=== PATIENT | female | born 1945 | race Caucasian/White ===

== ENCOUNTER 2018-01-18 11:18 | Inpatient (IN) | payer MEDICARE ==
[2018-01-15 09:25] LABS: BASOPHILS % (AUTO) 0.6 % (0-1); EOSINOPHILS # (AUTO) 0.3 X10'3 (0-0.9); EOSINOPHILS % (AUTO) 4.9 % (0-6); HEMATOCRIT 41.2 % (35.0-45.0); HEMOGLOBIN 13.5 g/dl (12.0-16.0); LYMPHOCYTES # (AUTO) 0.9 X10'3 (1.1-4.8); LYMPHOCYTES % (AUTO) 15.1 % (21-51); MEAN CORPUSCULAR HEMOGLOBIN 32.5 PG (27.0-31.0); MEAN CORPUSCULAR HGB CONC 32.9 % (33.0-36.5); MEAN CORPUSCULAR VOLUME 98.8 FL (78-98); MEAN PLATELET VOLUME 8.2 FL (7.4-10.4); MONOCYTES # (AUTO) 0.5 X10'3 (0-0.9); MONOCYTES % (AUTO) 8.8 % (2-12); NEUTROPHILS # (AUTO) 4.4 X10'3 (1.8-7.7); NEUTROPHILS % (AUTO) 70.6 % (42-75); PLATELET COUNT 211 X10'3 (140-440); RED BLOOD COUNT 4.17 X10'6 (4.20-5.60); RED CELL DISTRIBUTION WIDTH 15.8 % (11.5-14.5); WHITE BLOOD COUNT 6.3 X10'3 (4.5-11.0)
[2018-01-15 09:35] LABS: ALANINE AMINOTRANSFERASE 24 U/L (12-78); ALBUMIN 3.4 G/DL (3.4-5.0); ALBUMIN/GLOBULIN RATIO 0.9 (1.1-1.5); ALKALINE PHOSPHATASE 76 IU/L (46-116); ANION GAP 8 (8-16); ASPARTATE AMINO TRANSFERASE 24 U/L (10-37); BILIRUBIN,TOTAL 0.5 MG/DL (0.1-1.0); BLOOD UREA NITROGEN 14 MG/DL (7-18); BUN/CREATININE RATIO 15.7 (6.6-38.0); CHLORIDE 103 MMOL/L (99-107); CREATININE 0.89 MG/DL (0.40-0.90); GLUCOSE 112 MG/DL (70-104); POTASSIUM 4.3 MMOL/L (3.5-5.1); SODIUM 140 MMOL/L (135-145); TOTAL CARBON DIOXIDE 28.8 MMOL/L (24-32); TOTAL PROTEIN 7.1 G/DL (6.4-8.2); eGFR 62 ML/MIN
[2018-01-15 09:41] LABS: PARTIAL THROMBOPLASTIN TIME 26 SECONDS (22-32)
[~2018-01-18] VITALS: Ht 154.9 cm; Wt 82.5 kg
[2018-01-18] VITALS (23 sets, daily range): BP systolic 52–129; BP diastolic 36–88
[~2018-01-18 11:18] MED LIST: ASPI-1265 PO; BENA20TA82 PO; CARV3.122 PO; FURO-150 PO; NITR0.4T48 TD; OMEP40CA37 PO; POTA10TA19 PO; SIMV40TA4 PO; SPIR25TA5 PO
[2018-01-18] MEDS ORDERED: normal saline 1000ml 1,000 ML IV SCH ×2 (11:55→16:56)
[2018-01-18] MEDS ORDERED: LORazepam 0.5 MG tablet PO PRN (11:55)
[2018-01-18] MEDS ORDERED: diphenhydrAMINE 25mg capsule PO PRN (11:55)
[2018-01-18] MEDS ORDERED: nitroGLYCERIN 0.4mg SUBLingual tab SL PRN (11:55)
[2018-01-18] MEDS ORDERED: MELA3TAB PO (12:15)
[2018-01-18] MEDS ORDERED: CHOL10002 PO (12:15)
[2018-01-18] MEDS ORDERED: CLOP75TA35 PO (12:15)
[2018-01-18] MEDS ORDERED: MONT10TA24 PO (12:15)
[2018-01-18] MEDS ORDERED: GABA-532 PO (12:15)
[2018-01-18] MEDS ORDERED: fentaNYL/PF 50MCG/1 ML 2ML syringe ONE (13:49)
[2018-01-18] MEDS ORDERED: iohexol 350MG/ML 100ml bottle IV ONE (13:49)
[2018-01-18] MEDS ORDERED: iohexol 350 MG/ML 50ML vial IV ONE (13:49)
[2018-01-18] MEDS ORDERED: LIDOcaine 1% (10mg/ml)w/preservative injection 20ml MDV ONE (13:49)
[2018-01-18] MEDS ORDERED: midazolam 2 mg/2 ml injection ONE (13:49)
[2018-01-18] MEDS ORDERED: atropine 0.1mg/ml 10ml syringe ONE (15:47)
[2018-01-18] MEDS: DOBUTamine-DoBUTrex 500mg/D5W 250 ML IV SCH ×2 (16:25→21:44)
[2018-01-18 16:37] LABS: BASOPHILS % (AUTO) 0.4 % (0-1); EOSINOPHILS # (AUTO) 0.1 X10'3 (0-0.9); EOSINOPHILS % (AUTO) 1.6 % (0-6); HEMATOCRIT 32.7 % (35.0-45.0); HEMOGLOBIN 10.4 g/dl (12.0-16.0); LYMPHOCYTES # (AUTO) 1.5 X10'3 (1.1-4.8); LYMPHOCYTES % (AUTO) 18.5 % (21-51); MEAN CORPUSCULAR HEMOGLOBIN 31.9 PG (27.0-31.0); MEAN CORPUSCULAR HGB CONC 31.9 % (33.0-36.5); MEAN CORPUSCULAR VOLUME 100.1 FL (78-98); MEAN PLATELET VOLUME 8.4 FL (7.4-10.4); MONOCYTES # (AUTO) 0.8 X10'3 (0-0.9); MONOCYTES % (AUTO) 9.6 % (2-12); NEUTROPHILS # (AUTO) 5.5 X10'3 (1.8-7.7); NEUTROPHILS % (AUTO) 69.9 % (42-75); PLATELET COUNT 179 X10'3 (140-440); RED BLOOD COUNT 3.26 X10'6 (4.20-5.60); WHITE BLOOD COUNT 7.9 X10'3 (4.5-11.0)
[2018-01-18] MEDS ORDERED: ondansetron/PF 4mg/2ml inj IV PRN (17:00)
[2018-01-18] MEDS ORDERED: potassium Cl 40MEQ/NS 500ml 500 ML IV PRN ×2 (17:00)
[2018-01-18] MEDS ORDERED: DOBUTamine-DoBUTrex 500mg/D5W 250 ML IV SCH (17:00)
[2018-01-18] MEDS ORDERED: magnesium 1gm/100ml D5W IVPB 100 ML IV PRN (17:00)
[2018-01-18] MEDS ORDERED: mag hydrox/Alum hydrox/simeth 30ml oral suspension PO PRN (17:00)
[2018-01-18] MEDS ORDERED: magnesium 4gm in 100ml NS 100 ML IV PRN (17:00)
[2018-01-18] MEDS ORDERED: magnesium Cl slow-release 64mg tablet PO PRN (17:00)
[2018-01-18] MEDS ORDERED: magnesium hydroxide 30ml (MOM) UD suspension PO PRN (17:00)
[2018-01-18] MEDS ORDERED: potassium Cl 20 mEq SR tablet PO PRN ×2 (17:00)
[2018-01-18] MEDS ORDERED: HYDROcodone/acetaminophen 10/325mg tab PO PRN (18:20)
[2018-01-18] MEDS ORDERED: proCHLORperazine 10 MG/2 ml inj IV PRN (18:20)
[2018-01-18] MEDS: ondansetron/PF 4mg/2ml inj IV PRN (18:34)
[2018-01-18] MEDS ORDERED: carVEDilol 3.125mg tablet PO SCH (20:00)
[2018-01-18] MEDS: atorvastatin 20mg tablet PO SCH (20:58)
[2018-01-18] MEDS: acetaminophen 325mg tablet PO PRN (20:59)
[2018-01-18] MEDS: gabapentin 300mg capsule PO SCH (20:59)
[2018-01-18] MEDS ORDERED: temazepam 15mg capsule PO PRN (21:00)
[2018-01-18] MEDS: Melatonin 3mg tablet PO SCH (21:00)
[2018-01-18] MEDS ORDERED: sodium chloride 0.45% 1,000 ML IV SCH (21:45)
[2018-01-18] MEDS ORDERED: albumin (human) 25% 100ml IV 100 ML IV ONE (23:00)
[2018-01-18 23:04] LABS: LIPASE 88 U/L (73-393); MAGNESIUM 1.3 MG/DL (1.5-2.4); PHOSPHORUS 4.2 MG/DL (2.3-4.5); TROPONIN I < 0.04 NG/ML (0.0-0.05)
[2018-01-19] VITALS (18 sets, daily range): BP systolic 80–123; BP diastolic 49–72
[2018-01-19] MEDS ORDERED: DOPamine 400mg/D5W 250ml 250 ML IV SCH ×3 (00:05→23:59)
[2018-01-19] MEDS ORDERED: normal saline 1000ml 1,000 ML IV SCH (00:10)
[2018-01-19] MEDS: ondansetron/PF 4mg/2ml inj IV PRN (00:59)
[2018-01-19] MEDS ORDERED: magnesium 1gm/100ml D5W IVPB 100 ML IV PRN (06:10)
[2018-01-19] MEDS ORDERED: magnesium Cl slow-release 64mg tablet PO PRN (06:10)
[2018-01-19] MEDS ORDERED: magnesium 4gm in 100ml NS 100 ML IV PRN (06:10)
[2018-01-19 06:37] LABS: BASOPHILS % (AUTO) 0.2 % (0-1); EOSINOPHILS % (AUTO) 0.1 % (0-6); HEMATOCRIT 30.7 % (35.0-45.0); LYMPHOCYTES # (AUTO) 0.7 X10'3 (1.1-4.8); LYMPHOCYTES % (AUTO) 7.7 % (21-51); MEAN CORPUSCULAR HEMOGLOBIN 32.2 PG (27.0-31.0); MEAN CORPUSCULAR HGB CONC 32.6 % (33.0-36.5); MEAN CORPUSCULAR VOLUME 98.5 FL (78-98); MEAN PLATELET VOLUME 8.6 FL (7.4-10.4); MONOCYTES # (AUTO) 0.8 X10'3 (0-0.9); MONOCYTES % (AUTO) 8.9 % (2-12); NEUTROPHILS # (AUTO) 7.2 X10'3 (1.8-7.7); NEUTROPHILS % (AUTO) 83.1 % (42-75); PLATELET COUNT 197 X10'3 (140-440); RED BLOOD COUNT 3.11 X10'6 (4.20-5.60); RED CELL DISTRIBUTION WIDTH 16.1 % (11.5-14.5); WHITE BLOOD COUNT 8.6 X10'3 (4.5-11.0)
[2018-01-19 06:48] LABS: ANION GAP 7 (8-16); BLOOD UREA NITROGEN 22 MG/DL (7-18); BUN/CREATININE RATIO 22.2 (6.6-38.0); CHLORIDE 106 MMOL/L (99-107); CREATININE 0.99 MG/DL (0.40-0.90); GLUCOSE 125 MG/DL (70-104); MAGNESIUM 1.5 MG/DL (1.5-2.4); POTASSIUM 4.3 MMOL/L (3.5-5.1); SODIUM 142 MMOL/L (135-145); TOTAL CARBON DIOXIDE 28.6 MMOL/L (24-32); eGFR 55 ML/MIN
[2018-01-19 06:58] LABS: PROTHROMBIN TIME 10.3 SECONDS (9.0-12.0)
[2018-01-19] MEDS: pantoprazole 40mg Tablet.DR PO SCH (07:04)
[2018-01-19] MEDS: vitamin D (cholecalciferol) 1,000 unit tablet PO SCH (07:05)
[2018-01-19] MEDS: montelukast 10mg tablet PO SCH (07:05)
[2018-01-19] MEDS: clopidogrel 75mg tablet PO SCH (07:05)
[2018-01-19] MEDS: gabapentin 300mg capsule PO SCH ×3 (07:05→21:08)
[2018-01-19] MEDS: K and/or MAG REPLACEMENT MC SCH (07:06)
[2018-01-19] MEDS: aspirin 81mg tab.chew PO SCH (07:06)
[2018-01-19] MEDS: heparin, porcine 5000 units/ml vial SQ SCH ×2 (07:12)
[2018-01-19] MEDS ORDERED: lisinopril 20mg tablet PO SCH (08:00)
[2018-01-19] MEDS: sodium chloride 0.45% 1,000 ML IV SCH (09:43)
[2018-01-19] MEDS ORDERED: normal saline 1000ml 1,000 ML IV ONE (10:35)
[2018-01-19] MEDS: DOBUTamine-DoBUTrex 500mg/D5W 250 ML IV SCH (11:46)
[2018-01-19] MEDS: budesonide 0.5mg/2ml UD nebule IH SCH (15:22)
[2018-01-19] MEDS: acetaminophen 325mg tablet PO PRN ×2 (16:11→21:10)
[2018-01-19] MEDS: atorvastatin 20mg tablet PO SCH (21:08)
[2018-01-19] MEDS: OXAZEpam 15mg capsule PO PRN (21:09)
[2018-01-19] MEDS: Melatonin 3mg tablet PO SCH (21:09)
[2018-01-19] MEDS ORDERED: DOBUTamine-DoBUTrex 500mg/D5W 250 ML IV SCH (23:55)
[2018-01-20] VITALS (9 sets, daily range): BP systolic 90–116; BP diastolic 52–72
[2018-01-20] MEDS: sodium chloride 0.45% 1,000 ML IV SCH (03:35)
[2018-01-20] MEDS: acetaminophen 325mg tablet PO PRN ×2 (04:29→15:12)
[2018-01-20 06:50] LABS: ALBUMIN 2.7 G/DL (3.4-5.0); ANION GAP 6 (8-16); BLOOD UREA NITROGEN 10 MG/DL (7-18); BUN/CREATININE RATIO 13.3 (6.6-38.0); CALCIUM 8.5 MG/DL (8.5-10.1); CHLORIDE 106 MMOL/L (99-107); CREATININE 0.75 MG/DL (0.40-0.90); GLUCOSE 96 MG/DL (70-104); MAGNESIUM 1.7 MG/DL (1.5-2.4); POTASSIUM 4.1 MMOL/L (3.5-5.1); SODIUM 142 MMOL/L (135-145); TOTAL CARBON DIOXIDE 29.9 MMOL/L (24-32); eGFR 76 ML/MIN
[2018-01-20 06:57] LABS: PROTHROMBIN TIME 10.4 SECONDS (9.0-12.0)
[2018-01-20 07:00] LABS: BASOPHILS % (AUTO) 0.2 % (0-1); EOSINOPHILS # (AUTO) 0.3 X10'3 (0-0.9); EOSINOPHILS % (AUTO) 5.1 % (0-6); HEMATOCRIT 24.4 % (35.0-45.0); HEMOGLOBIN 7.9 g/dl (12.0-16.0); LYMPHOCYTES # (AUTO) 0.8 X10'3 (1.1-4.8); LYMPHOCYTES % (AUTO) 12.2 % (21-51); MEAN CORPUSCULAR HEMOGLOBIN 31.8 PG (27.0-31.0); MEAN CORPUSCULAR HGB CONC 32.2 % (33.0-36.5); MEAN CORPUSCULAR VOLUME 98.8 FL (78-98); MEAN PLATELET VOLUME 8.2 FL (7.4-10.4); MONOCYTES # (AUTO) 0.7 X10'3 (0-0.9); MONOCYTES % (AUTO) 11.7 % (2-12); NEUTROPHILS # (AUTO) 4.4 X10'3 (1.8-7.7); NEUTROPHILS % (AUTO) 70.8 % (42-75); PLATELET COUNT 164 X10'3 (140-440); RED BLOOD COUNT 2.47 X10'6 (4.20-5.60); WHITE BLOOD COUNT 6.2 X10'3 (4.5-11.0)
[2018-01-20] MEDS: K and/or MAG REPLACEMENT MC SCH (08:00)
[2018-01-20] MEDS: gabapentin 300mg capsule PO SCH ×3 (08:01→20:14)
[2018-01-20] MEDS: pantoprazole 40mg Tablet.DR PO SCH (08:01)
[2018-01-20] MEDS: montelukast 10mg tablet PO SCH (08:01)
[2018-01-20] MEDS: clopidogrel 75mg tablet PO SCH (08:01)
[2018-01-20] MEDS: aspirin 81mg tab.chew PO SCH (08:01)
[2018-01-20] MEDS: vitamin D (cholecalciferol) 1,000 unit tablet PO SCH (08:02)
[2018-01-20] MEDS: polyethylene glycol 3350 17gm powd pack PO SCH ×2 (10:27→20:16)
[2018-01-20 15:14] LABS: OCCULT BLOOD STOOL NEGATIVE (Neg)
[2018-01-20] MEDS: HYDROcodone/acetaminophen 5mg/325mg tablet PO PRN (18:45)
[2018-01-20] MEDS: carVEDilol 3.125mg tablet PO SCH (20:00)
[2018-01-20] MEDS: Melatonin 3mg tablet PO SCH (20:14)
[2018-01-20] MEDS: atorvastatin 20mg tablet PO SCH (20:14)
[2018-01-20] MEDS: OXAZEpam 15mg capsule PO PRN (20:15)
[2018-01-20] MEDS ORDERED: polyethylene glycol 3350 17gm powd pack PO SCH (21:00)
[2018-01-21 02:00] VITALS: BP 102/61
[2018-01-21] MEDS: sodium chloride 0.45% 1,000 ML IV SCH ×3 (04:16→09:26)
[2018-01-21] MEDS: HYDROcodone/acetaminophen 5mg/325mg tablet PO PRN (04:17)
[2018-01-21] MEDS ORDERED: albuterol 2.5 MG/3 ML nebule ONE (04:53)
[2018-01-21] MEDS ORDERED: LORazepam 2 mg/ml vial IV PRN ×2 (04:55)
[2018-01-21 05:07] LABS: BASOPHILS % (AUTO) 0.3 % (0-1); EOSINOPHILS # (AUTO) 0.4 X10'3 (0-0.9); HEMATOCRIT 27.1 % (35.0-45.0); HEMOGLOBIN 8.8 g/dl (12.0-16.0); LYMPHOCYTES # (AUTO) 1.3 X10'3 (1.1-4.8); LYMPHOCYTES % (AUTO) 15.3 % (21-51); MEAN CORPUSCULAR HEMOGLOBIN 32.4 PG (27.0-31.0); MEAN CORPUSCULAR HGB CONC 32.5 % (33.0-36.5); MEAN CORPUSCULAR VOLUME 99.9 FL (78-98); MEAN PLATELET VOLUME 8.2 FL (7.4-10.4); MONOCYTES # (AUTO) 0.8 X10'3 (0-0.9); MONOCYTES % (AUTO) 9.6 % (2-12); NEUTROPHILS # (AUTO) 5.8 X10'3 (1.8-7.7); NEUTROPHILS % (AUTO) 69.8 % (42-75); PLATELET COUNT 195 X10'3 (140-440); RED BLOOD COUNT 2.71 X10'6 (4.20-5.60); RED CELL DISTRIBUTION WIDTH 15.8 % (11.5-14.5); WHITE BLOOD COUNT 8.4 X10'3 (4.5-11.0)
[2018-01-21 05:43] LABS: PROTHROMBIN TIME 10.1 SECONDS (9.0-12.0)
[2018-01-21 05:48] LABS: ANION GAP 7 (8-16); BLOOD UREA NITROGEN 11 MG/DL (7-18); BUN/CREATININE RATIO 14.7 (6.6-38.0); CALCIUM 8.8 MG/DL (8.5-10.1); CHLORIDE 102 MMOL/L (99-107); CREATININE 0.75 MG/DL (0.40-0.90); GLUCOSE 104 MG/DL (70-104); MAGNESIUM 1.7 MG/DL (1.5-2.4); POTASSIUM 4.3 MMOL/L (3.5-5.1); SODIUM 140 MMOL/L (135-145); TOTAL CARBON DIOXIDE 30.8 MMOL/L (24-32); eGFR 76 ML/MIN
[2018-01-21 06:00] VITALS: BP 103/44
[2018-01-21] MEDS: budesonide 0.5mg/2ml UD nebule IH SCH ×2 (07:59→19:49)
[2018-01-21] MEDS: albuterol 2.5 MG/3 ML nebule NEB PRN ×2 (07:59→19:49)
[2018-01-21] MEDS: K and/or MAG REPLACEMENT MC SCH (08:00)
[2018-01-21] MEDS: montelukast 10mg tablet PO SCH (08:59)
[2018-01-21] MEDS: carVEDilol 3.125mg tablet PO SCH ×2 (08:59→21:35)
[2018-01-21] MEDS: pantoprazole 40mg Tablet.DR PO SCH (08:59)
[2018-01-21] MEDS: gabapentin 300mg capsule PO SCH ×3 (09:00→21:35)
[2018-01-21] MEDS: vitamin D (cholecalciferol) 1,000 unit tablet PO SCH (09:00)
[2018-01-21] MEDS: aspirin 81mg tab.chew PO SCH (09:00)
[2018-01-21] MEDS: clopidogrel 75mg tablet PO SCH (09:00)
[2018-01-21] MEDS ORDERED: furosemide 20 MG/2 ML vial IV SCH (10:00)
[2018-01-21] MEDS: ondansetron/PF 4mg/2ml inj IV PRN (10:05)
[2018-01-21 11:00] VITALS: BP 126/97
[2018-01-21] MEDS: lisinopril 2.5mg tablet PO SCH (14:18)
[2018-01-21 15:00] VITALS: BP 94/56
[2018-01-21 19:00] VITALS: BP 111/60
[2018-01-21] MEDS: furosemide 20 MG/2 ML vial IV SCH (21:34)
[2018-01-21] MEDS: Melatonin 3mg tablet PO SCH (21:36)
[2018-01-21] MEDS: atorvastatin 20mg tablet PO SCH (21:36)
[2018-01-21] MEDS: polyethylene glycol 3350 17gm powd pack PO SCH (21:36)
[2018-01-21] MEDS: heparin, porcine 5000 units/ml vial SQ SCH (21:39)
[2018-01-21 23:00] VITALS: BP 115/66
[2018-01-22 03:00] VITALS: BP 90/53
[2018-01-22] MEDS: acetaminophen 325mg tablet PO PRN (04:57)
[2018-01-22 06:00] VITALS: BP 90/54
[2018-01-22 07:00] LABS: BASOPHILS # (AUTO) 0.1 X10'3 (0-0.2); BASOPHILS % (AUTO) 1.1 % (0-1); EOSINOPHILS # (AUTO) 0.4 X10'3 (0-0.9); EOSINOPHILS % (AUTO) 7.1 % (0-6); HEMATOCRIT 25.1 % (35.0-45.0); HEMOGLOBIN 8.2 g/dl (12.0-16.0); LYMPHOCYTES % (AUTO) 15.2 % (21-51); MEAN CORPUSCULAR HEMOGLOBIN 32.5 PG (27.0-31.0); MEAN CORPUSCULAR HGB CONC 32.6 % (33.0-36.5); MEAN CORPUSCULAR VOLUME 99.7 FL (78-98); MEAN PLATELET VOLUME 8.2 FL (7.4-10.4); MONOCYTES # (AUTO) 0.7 X10'3 (0-0.9); MONOCYTES % (AUTO) 11.7 % (2-12); NEUTROPHILS # (AUTO) 4.1 X10'3 (1.8-7.7); NEUTROPHILS % (AUTO) 64.9 % (42-75); PLATELET COUNT 199 X10'3 (140-440); RED BLOOD COUNT 2.52 X10'6 (4.20-5.60); RED CELL DISTRIBUTION WIDTH 15.7 % (11.5-14.5); WHITE BLOOD COUNT 6.3 X10'3 (4.5-11.0)
[2018-01-22 07:14] LABS: ALBUMIN 2.7 G/DL (3.4-5.0); ANION GAP 3 (8-16); BLOOD UREA NITROGEN 12 MG/DL (7-18); BUN/CREATININE RATIO 12.8 (6.6-38.0); CALCIUM 8.6 MG/DL (8.5-10.1); CHLORIDE 100 MMOL/L (99-107); CREATININE 0.94 MG/DL (0.40-0.90); GLUCOSE 103 MG/DL (70-104); MAGNESIUM 1.6 MG/DL (1.5-2.4); POTASSIUM 3.8 MMOL/L (3.5-5.1); SODIUM 138 MMOL/L (135-145); TOTAL CARBON DIOXIDE 35.2 MMOL/L (24-32); eGFR 58 ML/MIN
[2018-01-22] MEDS: gabapentin 300mg capsule PO SCH ×2 (07:14→13:20)
[2018-01-22] MEDS: aspirin 81mg tab.chew PO SCH (07:14)
[2018-01-22] MEDS: vitamin D (cholecalciferol) 1,000 unit tablet PO SCH (07:14)
[2018-01-22] MEDS: clopidogrel 75mg tablet PO SCH (07:14)
[2018-01-22] MEDS: montelukast 10mg tablet PO SCH (07:14)
[2018-01-22 07:15] VITALS: BP 88/47
[2018-01-22] MEDS: furosemide 20 MG/2 ML vial IV SCH (07:15)
[2018-01-22] MEDS: heparin, porcine 5000 units/ml vial SQ SCH (07:16)
[2018-01-22 07:17] LABS: PROTHROMBIN TIME 10.3 SECONDS (9.0-12.0)
[2018-01-22] MEDS: carVEDilol 3.125mg tablet PO SCH (08:00)
[2018-01-22] MEDS: K and/or MAG REPLACEMENT MC SCH (08:00)
[2018-01-22] MEDS: lisinopril 2.5mg tablet PO SCH (08:00)
[2018-01-22] MEDS: budesonide 0.5mg/2ml UD nebule IH SCH (08:00)
[2018-01-22] MEDS: pantoprazole 40mg Tablet.DR PO SCH (10:40)
[2018-01-22 11:00] VITALS: BP 88/43
[2018-01-22] MEDS ORDERED: acetaminophen 325mg tablet PO PRN (11:40)
[2018-01-22] MEDS ORDERED: FURO-150 PO ×2 (12:34→12:37)
[2018-01-22] MEDS ORDERED: [UNRECOGNIZED DRUG - OTHER] PO (12:34)
[2018-01-22] MEDS ORDERED: LOTENSIN PO (12:37)
[2018-01-22 12:45] VITALS: BP 96/50
== END 2018-01-22 15:55 | disposition home or self-care (01) | DRG 287 ==
LOC: SSTAY O 11:18 → PCU 3S 16:56 → OBSVTOIN 16:56
PROVIDERS: ADMIT Internal Medicine Cardiovascular Disease; ATTEND Internal Medicine
PROC: 4A023N7 Measurement of Cardiac Sampling and Pressure, Left Heart, Percutaneous Approach (ICD-10-PCS; principal; 2018-01-18)
PROC: B2111ZZ Fluoroscopy of Multiple Coronary Arteries using Low Osmolar Contrast (ICD-10-PCS; 2018-01-18)
PROC: B2151ZZ Fluoroscopy of Left Heart using Low Osmolar Contrast (ICD-10-PCS; 2018-01-18)
PROC: B2181ZZ Fluoroscopy of Left Internal Mammary Bypass Graft using Low Osmolar Contrast (ICD-10-PCS; 2018-01-18)
PROC: B2131ZZ Fluoroscopy of Multiple Coronary Artery Bypass Grafts using Low Osmolar Contrast (ICD-10-PCS; 2018-01-18)
PROC: B41F1ZZ Fluoroscopy of Right Lower Extremity Arteries using Low Osmolar Contrast (ICD-10-PCS; 2018-01-18)
DX: T82.898A Other specified complication of vascular prosthetic devices, implants and grafts, initial encounter (principal); I25.110 Atherosclerotic heart disease of native coronary artery with unstable angina pectoris; I50.22 Chronic systolic (congestive) heart failure; I47.2 Ventricular tachycardia; I95.81 Postprocedural hypotension; I25.5 Ischemic cardiomyopathy; D63.8 Anemia in other chronic diseases classified elsewhere; G62.9 Polyneuropathy, unspecified; R00.1 Bradycardia, unspecified; R61 Generalized hyperhidrosis; I34.0 Nonrheumatic mitral (valve) insufficiency; I70.201 Unspecified atherosclerosis of native arteries of extremities, right leg; Y83.2 Surgical operation with anastomosis, bypass or graft as the cause of abnormal reaction of the patient, or of later complication, without mention of misadventure at the time of the procedure; E78.5 Hyperlipidemia, unspecified; I11.0 Hypertensive heart disease with heart failure; Z95.1 Presence of aortocoronary bypass graft; Z82.0 Family history of epilepsy and other diseases of the nervous system; Z82.41 Family history of sudden cardiac death; Z82.5 Family history of asthma and other chronic lower respiratory diseases; Y92.89 Other specified places as the place of occurrence of the external cause
CPT/HCPCS: 36415; 71045; 71046; 80048; 80053; 82272; 83690; 83735; 83880; 84100; 84443; 84484; 85025; 85610; 85730; 93459; 93926; 94640; 94760; 97162; 99152; 99153; A4620; A6257; C1769; G0378; J0461; J0780; J1250; J1265; J1644; J1940; J2001; J2060; J2250; J2405; J3010; J7030; J7626; P9047; Q0163; Q9967

== ENCOUNTER 2018-02-14 10:21 | Observation (INO) | payer MEDICARE ==
[2018-02-09 12:15] LABS: BASOPHILS # (AUTO) 0.1 X10'3 (0-0.2); EOSINOPHILS # (AUTO) 0.3 X10'3 (0-0.9); EOSINOPHILS % (AUTO) 3.3 % (0-6); LYMPHOCYTES # (AUTO) 0.9 X10'3 (1.1-4.8); LYMPHOCYTES % (AUTO) 11.5 % (21-51); MEAN CORPUSCULAR HEMOGLOBIN 32.7 PG (27.0-31.0); MEAN CORPUSCULAR HGB CONC 32.4 % (33.0-36.5); MEAN CORPUSCULAR VOLUME 101.2 FL (78-98); MEAN PLATELET VOLUME 7.9 FL (7.4-10.4); MONOCYTES # (AUTO) 0.8 X10'3 (0-0.9); MONOCYTES % (AUTO) 9.7 % (2-12); NEUTROPHILS # (AUTO) 5.8 X10'3 (1.8-7.7); NEUTROPHILS % (AUTO) 74.5 % (42-75); PRE OP HEMOGLOBIN 11.6 g/dL (12.0-16.0); PRE OP PLATELET COUNT 323 X10'3 (140-440); RED BLOOD COUNT 3.56 X10'6 (4.20-5.60); RED CELL DISTRIBUTION WIDTH 16.6 % (11.5-14.5)
[2018-02-09 12:18] LABS: CLARITY,URINE CLEAR (Clear); COLOR,URINE YELLOW (Yellow); GLUCOSE, URINE NEGATIVE (Neg); KETONES,URINE NEGATIVE (Neg); LEUKOCYTE ESTERASE ,URINE NEGATIVE (Neg); NITRITES, URINE NEGATIVE (Neg); OCCULT BLOOD,URINE NEGATIVE (Neg); PROTEIN,URINE NEGATIVE (Neg)
[2018-02-09 12:19] LABS: UA COLLECTION TYPE CLN CATCH MIDSTREAM
[2018-02-09 12:32] LABS: PRE OP PROTIME 10.2 SECONDS (9.0-12.0)
[2018-02-09 12:54] LABS: ALBUMIN 3.5 G/DL (3.4-5.0); ALBUMIN/GLOBULIN RATIO 0.9 (1.1-1.5); ALKALINE PHOSPHATASE 85 IU/L (46-116); BLOOD UREA NITROGEN 15 MG/DL (7-18); BUN/CREATININE RATIO 16.9 (6.6-38.0); CALCIUM 9.1 MG/DL (8.5-10.1); CHLORIDE 102 MMOL/L (99-107); CREATININE 0.89 MG/DL (0.40-0.90); PRE OP ALT 22 U/L (30-65); PRE OP ANION GAP 8 (8-16); PRE OP AST 29 U/L (10-37); PRE OP BILIRUB, TOTAL 0.7 MG/DL (0.0-1.0); PRE OP GLUCOSE 102 MG/DL (70-104); PRE OP POTASSIUM 3.8 MMOL/L (3.4-5.1); PRE OP SODIUM 140 MMOL/L (135-145); TOTAL CARBON DIOXIDE 30.3 MMOL/L (24-32); TOTAL PROTEIN 7.5 G/DL (6.4-8.2); eGFR 62 ML/MIN
[~2018-02-14] VITALS: Ht 154.9 cm; Wt 79.6 kg
[2018-02-14] VITALS (21 sets, daily range): BP systolic 105–163; BP diastolic 51–88
[~2018-02-14 10:21] MED LIST changes: +ALLO100T PO; -BENA20TA82 PO; +BENA5TAB6 PO; +BUDE10.2 INH; +CHOL10002 PO; +CLOP75TA35 PO; +DOCUMENT DATE & TIME OF BETA-BLOCKER PO ONE; +GABA-532 PO; +MONT10TA24 PO; -NITR0.4T48 TD; -POTA10TA19 PO; -SPIR25TA5 PO; +albuterol 2.5 MG/3 ML nebule NEB ONE; +cefazolin/dext.iso 2gm/50ml 50 ML IV ONE; +famotidine 20mg tablet PO ONE; +ringers solution, lacted 1,000 ML IV SCH
[2018-02-14] MEDS ORDERED: DOBUTamine-DoBUTrex 500mg/D5W 250 ML IV SCH (11:20)
[2018-02-14] MEDS ORDERED: iohexol 300 MG/1 ML 50ml polymer ONE (11:59)
[2018-02-14] MEDS ORDERED: LIDOcaine 1% (10mg/ml) 2ml vial ONE (11:59)
[2018-02-14] MEDS ORDERED: LIDOcaine 1% 30ml preserv. free vial ONE (11:59)
[2018-02-14] MEDS ORDERED: BUPIVAcaine/PF 2.5mg/ml (0.25%) 10ml vial ONE (12:23)
[2018-02-14] MEDS ORDERED: fentaNYL/PF 50MCG/1 ML 2ML syringe ONE ×2 (12:31→14:22)
[2018-02-14] MEDS ORDERED: etomidate 2mg/ml inj. ONE (12:31)
[2018-02-14] MEDS ORDERED: DOBUTamine/D5W 500mg/250ml premix IV ONE (12:40)
[2018-02-14] MEDS ORDERED: sevoflurane 250ml liquid IH ONE (12:40)
[2018-02-14] MEDS ORDERED: dexamethasone sod phosphate 4mg/ml inj. ONE (12:41)
[2018-02-14] MEDS ORDERED: rocuronium 10mg/ml inj IV ONE ×2 (12:41→12:43)
[2018-02-14] MEDS ORDERED: ondansetron/PF 4mg/2ml inj ONE (13:08)
[2018-02-14] MEDS ORDERED: ringers solution, lacted 1,000 ML IV SCH (13:35)
[2018-02-14] MEDS ORDERED: hydrALAZINE 20mg/ml inj. IV PRN (13:35)
[2018-02-14] MEDS ORDERED: morphine 4 MG/ML inj SYRINge IV PRN ×2 (13:35)
[2018-02-14] MEDS ORDERED: fentaNYL/PF 50MCG/1 ML 2ML syringe IV PRN ×2 (13:35)
[2018-02-14] MEDS ORDERED: ondansetron/PF 4mg/2ml inj IV PRN (13:35)
[2018-02-14] MEDS ORDERED: enalaprilat dihydrate 2.5mg/2ml vial IV PRN (13:35)
[2018-02-14] MEDS ORDERED: amiodarone 50MG/ML inj IV ONE ×2 (14:26)
[2018-02-14] MEDS ORDERED: neostigmine methylsulfate 1 MG/ML 10ml vial ONE (14:37)
[2018-02-14] MEDS ORDERED: glycopyrrolate 0.2mg/ml inj ONE (14:37)
[2018-02-14] MEDS: potassium CL 20mEq in D5-1/2NS 1,000 ML IV SCH ×2 (17:10→23:23)
[2018-02-14] MEDS: ceFAZolin inj. 1,000 MG in dextrose 5%-water 50ml 50 ML IV SCH (17:10)
[2018-02-14] MEDS ORDERED: atorvastatin 20mg tablet PO SCH (21:00)
[2018-02-14] MEDS ORDERED: pantoprazole 40mg Tablet.DR PO SCH (21:00)
[2018-02-14] MEDS ORDERED: montelukast 10mg tablet PO SCH (21:00)
[2018-02-14] MEDS: gabapentin 300mg capsule PO SCH (21:27)
[2018-02-14] MEDS: carVEDilol 3.125mg tablet PO SCH (21:27)
[2018-02-14] MEDS: HYDROcodone/acetaminophen 10/325mg tab PO PRN (21:34)
[2018-02-14] MEDS: budesonide 0.5mg/2ml UD nebule IH SCH (22:00)
[2018-02-15] MEDS: ceFAZolin inj. 1,000 MG in dextrose 5%-water 50ml 50 ML IV SCH ×2 (00:14→08:18)
[2018-02-15 03:00] VITALS: BP 115/82
[2018-02-15 06:48] VITALS: BP 100/69
[2018-02-15 07:12] VITALS: BP 100/69
[2018-02-15] MEDS ORDERED: lisinopril 5mg tablet PO SCH (08:00)
[2018-02-15] MEDS ORDERED: vitamin D (cholecalciferol) 1,000 unit tablet PO SCH (08:00)
[2018-02-15] MEDS ORDERED: clopidogrel 75mg tablet PO SCH (08:00)
[2018-02-15] MEDS ORDERED: furosemide 20MG tablet PO SCH (08:00)
[2018-02-15] MEDS: gabapentin 300mg capsule PO SCH (08:16)
[2018-02-15] MEDS: albuterol 2.5 MG/3 ML nebule NEB SCH ×2 (08:17→11:20)
[2018-02-15] MEDS: carVEDilol 3.125mg tablet PO SCH (08:17)
[2018-02-15] MEDS: potassium CL 20mEq in D5-1/2NS 1,000 ML IV SCH ×2 (08:28→11:33)
[2018-02-15] MEDS ORDERED: aspirin 81mg tab.chew PO SCH (08:30)
[2018-02-15] MEDS ORDERED: allopurinol 100mg tablet PO SCH (08:30)
[2018-02-15] MEDS: budesonide 0.5mg/2ml UD nebule IH SCH (09:00)
[2018-02-15] MEDS: HYDROcodone/acetaminophen 10/325mg tab PO PRN (09:02)
[2018-02-15 11:12] VITALS: BP 107/66
== END 2018-02-15 13:37 | disposition home or self-care (01) ==
LOC: PAS 10:21 → PCU 3S 15:25
PROVIDERS: ADMIT Surgery; ATTEND Surgery
DX: I25.5 Ischemic cardiomyopathy (principal); J44.9 Chronic obstructive pulmonary disease, unspecified; I12.9 Hypertensive chronic kidney disease with stage 1 through stage 4 chronic kidney disease, or unspecified chronic kidney disease; E11.22 Type 2 diabetes mellitus with diabetic chronic kidney disease; N18.9 Chronic kidney disease, unspecified; M10.9 Gout, unspecified; Z95.1 Presence of aortocoronary bypass graft
CPT/HCPCS: 33249; 36415; 71045; 71048; 76001; 80053; 81003; 85025; 85610; 85730; 94640; 94760; 96365; 96366; A6257; A6258; C1721; G0378; J0282; J0690; J1100; J1250; J2405; J2710; J3010; J3490; J7030; J7060; A4565; A7000; J7120; J7626; Q9967

== ENCOUNTER 2018-04-25 13:51 | Outpatient (CLI) | payer MEDICARE ==
[~2018-04-25] VITALS: Ht 154.9 cm; Wt 78.5 kg
[~2018-04-25 13:51] MED LIST changes: -DOCUMENT DATE & TIME OF BETA-BLOCKER PO ONE; -albuterol 2.5 MG/3 ML nebule NEB ONE; -cefazolin/dext.iso 2gm/50ml 50 ML IV ONE; -famotidine 20mg tablet PO ONE; -ringers solution, lacted 1,000 ML IV SCH
[2018-04-25 14:46] LABS: TOTAL HEMOGLOBIN 13.6 G/dl (12.0-16.0)
[2018-04-25] MEDS ORDERED: albuterol 2.5 MG/3 ML nebule NEB ONE (14:54)
== END 2018-04-25 23:59 | disposition home or self-care (01) ==
LOC: RT 13:51
PROVIDERS: ATTEND Internal Medicine Pulmonary Disease
DX: J98.8 Other specified respiratory disorders (principal); I10 Essential (primary) hypertension; Z79.82 Long term (current) use of aspirin; Z87.891 Personal history of nicotine dependence; Z95.1 Presence of aortocoronary bypass graft
CPT/HCPCS: 85018; 94060; 94727; 94729; 94760

== ENCOUNTER 2018-05-16 06:52 | Day surgery (SDC) | payer MEDICARE ==
[~2018-05-16] VITALS: Ht 154.9 cm; Wt 72.0 kg
[2018-05-16] VITALS (16 sets, daily range): BP systolic 107–148; BP diastolic 43–86
[2018-05-16] MEDS ORDERED: LIDOcaine 4% (40 mg/ml) topical solution 50ml TP ONE (07:15)
[2018-05-16] MEDS ORDERED: morphine 10mg/ml inj. IM PRN (07:15)
[2018-05-16] MEDS ORDERED: phenylephrine 1% (X-tra strg) 15ml nasal spray NS ONE (07:15)
[2018-05-16] MEDS ORDERED: LIDOcaine Viscous 15ml cup MM ONE ×2 (07:15→07:20)
[2018-05-16] MEDS ORDERED: LIDOCAINE 4% (40MG/ML) topical solution 50ml **BRONCH ONLY ONE (07:21)
[2018-05-16] MEDS ORDERED: lidocaine 2% viscous 15 ML cup ***bronch room only MM ONE (07:21)
[2018-05-16] MEDS ORDERED: phenylephrine 1% Nasal spray (extra-strength) 15 ML bottle **bronch room NS ONE (07:22)
[2018-05-16] MEDS ORDERED: ALEN70TA60 PO (07:27)
[2018-05-16 07:39] LABS: BASOPHILS % (AUTO) 0.3 % (0-1); EOSINOPHILS # (AUTO) 0.1 X10'3 (0-0.9); EOSINOPHILS % (AUTO) 0.9 % (0-6); HEMOGLOBIN 14.3 g/dl (12.0-16.0); LYMPHOCYTES # (AUTO) 1.3 X10'3 (1.1-4.8); LYMPHOCYTES % (AUTO) 10.3 % (21-51); MEAN CORPUSCULAR HEMOGLOBIN 28.9 PG (27.0-31.0); MEAN CORPUSCULAR HGB CONC 32.4 g/dL (33.0-36.5); MEAN CORPUSCULAR VOLUME 89.1 FL (78-98); MEAN PLATELET VOLUME 8.1 FL (7.4-10.4); MONOCYTES # (AUTO) 1.2 X10'3 (0-0.9); MONOCYTES % (AUTO) 9.4 % (2-12); NEUTROPHILS # (AUTO) 9.8 X10'3 (1.8-7.7); NEUTROPHILS % (AUTO) 79.1 % (42-75); PLATELET COUNT 271 X10'3 (140-440); RED BLOOD COUNT 4.94 X10'6 (4.20-5.60); RED CELL DISTRIBUTION WIDTH 17.5 % (11.5-14.5); WHITE BLOOD COUNT 12.4 X10'3 (4.5-11.0)
[2018-05-16] MEDS ORDERED: fentaNYL/PF 50MCG/1 ML 2ML syringe ONE (07:57)
[2018-05-16] MEDS ORDERED: MIDAZolam 5mg/5ml vial ONE (07:57)
--- NOTE | 2018-05-16 08:07 | NUR ---
pt verified she took blood thinner medication yesterday and not today
== END 2018-05-16 10:58 | disposition home or self-care (01) ==
LOC: SSTAY O 06:52
PROVIDERS: ATTEND Internal Medicine Pulmonary Disease
DX: T17.890A Other foreign object in other parts of respiratory tract causing asphyxiation, initial encounter (principal); J44.9 Chronic obstructive pulmonary disease, unspecified; I50.9 Heart failure, unspecified; X58.XXXA Exposure to other specified factors, initial encounter; Y93.89 Activity, other specified; Y92.89 Other specified places as the place of occurrence of the external cause; Y99.8 Other external cause status
CPT/HCPCS: 31623; 36415; 76499; 82378; 85025; 87070; 94640; 94760; J2250; J2270; J3010; 31622; 88104; 88108; 88305

== ENCOUNTER 2018-07-31 13:31 | Inpatient (IN) | payer MEDICARE ==
[~2018-07-31] VITALS: Ht 154.9 cm; Wt 85.4 kg
[~2018-07-31 13:31] MED LIST changes: +ALEN70TA60 PO
--- NOTE | 2018-07-31 14:15 | NUR ---
[employer] faxed report and spoke to Dr. Stock regarding pt. defibrillator activity.
[2018-07-31 14:45] LABS: ALANINE AMINOTRANSFERASE 23 U/L (12-78); ALBUMIN 2.9 G/DL (3.4-5.0); ALBUMIN/GLOBULIN RATIO 0.9 (1.1-1.5); ALKALINE PHOSPHATASE 110 IU/L (46-116); ANION GAP 5 (8-16); ASPARTATE AMINO TRANSFERASE 35 U/L (10-37); BASOPHILS % (AUTO) 0.5 % (0-1); BILIRUBIN,TOTAL 1.6 MG/DL (0.1-1.0); BLOOD UREA NITROGEN 24 MG/DL (7-18); BUN/CREATININE RATIO 26.4 (6.6-38.0); CHLORIDE 101 MMOL/L (99-107); CREATININE 0.91 MG/DL (0.40-0.90); EOSINOPHILS # (AUTO) 0.3 X10'3 (0-0.9); EOSINOPHILS % (AUTO) 3.1 % (0-6); GLUCOSE 119 MG/DL (70-104); HEMATOCRIT 35.5 % (35.0-45.0); LYMPHOCYTES # (AUTO) 0.7 X10'3 (1.1-4.8); LYMPHOCYTES % (AUTO) 8.6 % (21-51); MEAN CORPUSCULAR HEMOGLOBIN 26.9 PG (27.0-31.0); MEAN CORPUSCULAR VOLUME 86.9 FL (78-98); MEAN PLATELET VOLUME 8.5 FL (7.4-10.4); MONOCYTES # (AUTO) 0.9 X10'3 (0-0.9); MONOCYTES % (AUTO) 10.2 % (2-12); NEUTROPHILS # (AUTO) 6.7 X10'3 (1.8-7.7); NEUTROPHILS % (AUTO) 77.6 % (42-75); PLATELET COUNT 243 X10'3 (140-440); POTASSIUM 3.6 MMOL/L (3.5-5.1); RED BLOOD COUNT 4.08 X10'6 (4.20-5.60); RED CELL DISTRIBUTION WIDTH 20.3 % (11.5-14.5); SODIUM 138 MMOL/L (135-145); TOTAL CARBON DIOXIDE 31.6 MMOL/L (24-32); TOTAL PROTEIN 6.2 G/DL (6.4-8.2); WHITE BLOOD COUNT 8.6 X10'3 (4.5-11.0); eGFR 60 ML/MIN
[2018-07-31 15:05] LABS: MAGNESIUM 1.7 MG/DL (1.5-2.4)
[2018-07-31] MEDS ORDERED: ALBU2.5V13 NEB (15:21)
[2018-07-31] MEDS ORDERED: MELA3TAB PO (15:27)
--- NOTE | 2018-07-31 15:52 | NUR ---
TWO REPS FROM [facility] [employer] IS AT BEDSIDE FOR FUTHER DEFIBRILATOR EVALUATION NOW.
[2018-07-31] MEDS ORDERED: FURO40TA4 PO (16:00)
[2018-07-31] MEDS ORDERED: OMEP20CA10 PO (16:01)
[2018-07-31] MEDS ORDERED: furosemide 10 MG/1 ML 10ml inj IV ONE (16:55)
[2018-07-31 17:04] LABS: ANISOCYTOSIS 3+; ELLIPTOCYTES 1+; HYPOCHROMASIA 2+; PLATELET ESTIMATE NORMAL; POIKILOCYTOSIS 1+; POLYCHROMASIA 1+
[2018-07-31] MEDS ORDERED: aspirin 325mg tablet PO ONE (17:45)
[2018-07-31] MEDS ORDERED: amiodarone 200mg tablet PO ONE (17:55)
[2018-07-31] MEDS ORDERED: potassium Cl 20 mEq SR tablet PO PRN (18:25)
[2018-07-31] MEDS ORDERED: magnesium Cl slow-release 64mg tablet PO PRN (18:25)
[2018-07-31] MEDS ORDERED: potassium Cl 40MEQ/NS 500ml 500 ML IV PRN ×2 (18:25)
[2018-07-31] MEDS ORDERED: magnesium 2GM in 50ml NS 50 ML IV PRN (18:25)
[2018-07-31] MEDS ORDERED: magnesium 4gm in 100ml NS 100 ML IV PRN (18:25)
[2018-07-31] MEDS ORDERED: mag hydrox/Alum hydrox/simeth 30ml oral suspension PO PRN (18:25)
[2018-07-31] MEDS ORDERED: magnesium hydroxide 30ml (MOM) UD suspension PO PRN (18:25)
[2018-07-31] MEDS ORDERED: acetaminophen 325mg tablet PO PRN (18:25)
--- NOTE | 2018-07-31 18:42 | NUR ---
admission orders in by dr. gimenez. pt now awaiting ipa. pt's son, alicia [phone] (cell), at bedside. pt is polite and cooperative. Awaiting her to bring her some dinner. Pt on HH diet. current vss. pt reprots no cp or any other issues.
--- NOTE | 2018-07-31 19:39 | NUR ---
AT BEDSIDE. PT EATING TURKEY SANDWICH. AWAITING IPA.
[2018-07-31] MEDS ORDERED: heparin, porcine 5000 units/ml vial SQ SCH (20:00)
[2018-07-31] MEDS ORDERED: non-formulary drug (Alendronate Sodium* (Fosamax*) 1 TABLET) PO SCH (20:10)
[2018-07-31] MEDS ORDERED: Melatonin 3mg tablet PO PRN (20:10)
[2018-07-31] MEDS: enoxaparin 40mg/0.4ml syringe SQ SCH (20:47)
[2018-07-31] MEDS: gabapentin 300mg capsule PO SCH (20:47)
[2018-07-31] MEDS: atorvastatin 20mg tablet PO SCH (20:47)
[2018-07-31] MEDS: furosemide 20MG tablet PO SCH (20:47)
[2018-07-31] MEDS ORDERED: SIMVASTATIN PO SCH (21:00)
--- NOTE | 2018-07-31 21:05 | NUR ---
6 HR TROP 0.67, 3 HR WAS 0.46.
[2018-07-31 22:00] VITALS: BP 100/38
--- NOTE | 2018-07-31 22:20 | NUR ---
Patient in room PCU 3015. I have received report from Terra DUNHAM and had the opportunity to ask questions and assume patient care.
[2018-08-01] VITALS (7 sets, daily range): BP systolic 84–138; BP diastolic 43–108
[2018-08-01 02:27] LABS: BASOPHILS # (AUTO) 0.1 X10'3 (0-0.2); BASOPHILS % (AUTO) 0.7 % (0-1); EOSINOPHILS # (AUTO) 0.3 X10'3 (0-0.9); EOSINOPHILS % (AUTO) 3.3 % (0-6); HEMATOCRIT 36.1 % (35.0-45.0); HEMOGLOBIN 11.3 g/dl (12.0-16.0); LYMPHOCYTES # (AUTO) 1.2 X10'3 (1.1-4.8); LYMPHOCYTES % (AUTO) 14.9 % (21-51); MEAN CORPUSCULAR HEMOGLOBIN 27.1 PG (27.0-31.0); MEAN CORPUSCULAR HGB CONC 31.2 g/dL (33.0-36.5); MEAN CORPUSCULAR VOLUME 86.7 FL (78-98); MEAN PLATELET VOLUME 8.5 FL (7.4-10.4); MONOCYTES # (AUTO) 0.9 X10'3 (0-0.9); MONOCYTES % (AUTO) 11.6 % (2-12); NEUTROPHILS # (AUTO) 5.6 X10'3 (1.8-7.7); NEUTROPHILS % (AUTO) 69.5 % (42-75); PLATELET COUNT 246 X10'3 (140-440); RED BLOOD COUNT 4.16 X10'6 (4.20-5.60); RED CELL DISTRIBUTION WIDTH 20.7 % (11.5-14.5); WHITE BLOOD COUNT 8.1 X10'3 (4.5-11.0)
[2018-08-01 02:38] LABS: ANION GAP 5 (8-16); BLOOD UREA NITROGEN 26 MG/DL (7-18); BUN/CREATININE RATIO 22.2 (6.6-38.0); CALCIUM 9.3 MG/DL (8.5-10.1); CHLORIDE 100 MMOL/L (99-107); CREATININE 1.17 MG/DL (0.40-0.90); GLUCOSE 142 MG/DL (70-104); POTASSIUM 3.3 MMOL/L (3.5-5.1); SODIUM 137 MMOL/L (135-145); TOTAL CARBON DIOXIDE 31.7 MMOL/L (24-32); eGFR 45 ML/MIN
[2018-08-01 02:44] LABS: TROPONIN I 0.63 NG/ML (0.0-0.05)
[2018-08-01 03:05] LABS: ANISOCYTOSIS 3+; ELLIPTOCYTES FEW; HYPOCHROMASIA 1+; MICROCYTOSIS 1+; PLATELET ESTIMATE NORMAL
--- NOTE | 2018-08-01 06:09 | NUR ---
REPORT GIVEN TO ROLF DUNHAM
--- NOTE | 2018-08-01 06:33 | NUR ---
Patient in room PCU 3015. I have received report from Yanira DUNHAM and had the opportunity to ask questions and assume patient care. Checked on patient, she is resting comfortably, vitals are stable, will continue to monitor.
--- NOTE | 2018-08-01 06:34 | NUR ---
Patient in room PCU 3015. I have received report from Yanira DUNHAM and had the opportunity to ask questions and assume patient care.
[2018-08-01] MEDS: vitamin D (cholecalciferol) 1,000 unit tablet PO SCH (07:37)
[2018-08-01] MEDS: allopurinol 100mg tablet PO SCH (07:38)
[2018-08-01] MEDS: furosemide 40mg tablet PO SCH (07:38)
[2018-08-01] MEDS: carVEDilol 3.125mg tablet PO SCH ×2 (07:39→19:22)
[2018-08-01] MEDS: gabapentin 300mg capsule PO SCH ×3 (07:42→20:59)
[2018-08-01] MEDS: potassium Cl 20 mEq SR tablet PO PRN ×3 (07:42→23:46)
[2018-08-01] MEDS: pantoprazole 40mg Tablet.DR PO SCH (07:43)
[2018-08-01] MEDS: clopidogrel 75mg tablet PO SCH (07:43)
[2018-08-01] MEDS: aspirin 81mg tab.chew PO SCH (07:44)
[2018-08-01] MEDS: montelukast 10mg tablet PO SCH (07:44)
[2018-08-01] MEDS: enoxaparin 40mg/0.4ml syringe SQ SCH (07:45)
[2018-08-01] MEDS ORDERED: lisinopril 5mg tablet PO SCH (08:00)
[2018-08-01] MEDS ORDERED: non-formulary drug (Cholecalciferol (Vitamin D3) (Vitamin D3) 2 TAB) PO SCH (08:00)
[2018-08-01] MEDS ORDERED: non-formulary drug (Benazepril HCl 1 TAB) PO SCH (08:00)
[2018-08-01] MEDS ORDERED: non-formulary drug (Omeprazole 1 CAP) PO SCH (08:00)
[2018-08-01] MEDS: K and/or MAG REPLACEMENT MC SCH (08:00)
[2018-08-01] MEDS: BUDESONIDE 0.25 MG/2 ML AMPUL.NEB IH SCH ×2 (08:36→20:33)
[2018-08-01] MEDS: ipratropium/albuterol 3ml nebule NEB PRN ×2 (08:36→20:33)
[2018-08-01] MEDS: acetaminophen 325mg tablet PO PRN ×2 (09:13→15:23)
--- NOTE | 2018-08-01 11:41 | NUR ---
Paged Dr. Boone: PAGER ID: [phone] MESSAGE: Bessie U [phone] RE: Darlene Sullivan [id number]. FYI patient BP 84/53. Patient asymptomatic. Received Coreg 3.125 mg and Zestril 5 mg at 0739.
--- NOTE | 2018-08-01 12:00 | NUR ---
Received discharge orders for patient. Patient states she is unable to bear weight on left foot. Patient fell due to syncopal episode. Will notify doctor.
--- NOTE | 2018-08-01 12:00 | NUR ---
Per Dr. Boone. Discontinue lisonpril 5 mg PO. Patient no longer takes this medication at home.
--- NOTE | 2018-08-01 12:12 | NUR ---
Paged Dr. Boone PAGER ID: [phone] MESSAGE: Gloria COON [phone], Re: Darlene Sullivan [id number]. Received DC orders. Pt. states left foot unable to bear weight due to fall after syncopal episode. Pt. would like to know if foot can be evaluated before discharge
--- NOTE | 2018-08-01 12:26 | NUR ---
Ordered 3 view x-ray of patient's left ankle. It is swollen and she is unable to bear weight on it (due to syncopal episode and fall on 07/31/18)
--- NOTE | 2018-08-01 13:29 | NUR ---
Paged Dr. Boone PAGER ID: [phone] MESSAGE: Gloria Tam [phone]. Darlene Sullivan [id number]. FYI, radiology report completed for ankle x-ray.
--- NOTE | 2018-08-01 14:36 | NUR ---
Malnutrition consult: Pt admit w/ syncope r/t vfib. Hx COPD, HTN, and pacemaker. PO pending since heart healthy diet cancelled. ERUM d/w RN to re-order diet per MD approval so pt can receive meals. Pt has no edema/wounds, weakness, or significant wt loss hx and does not qualify for malnutrition at this time. Addendum: 08/01/18 at [address] Amended: Links added.
--- NOTE | 2018-08-01 16:02 | NUR ---
Paged Dr. Boone: PAGER ID: [phone] MESSAGE: Bessie COX MONETT [phone] RE: Darlene Sullivan [id number]. Patient has had 2 doses of Tylenol today and still complains of pain 01/03. Can you order [place] for her? Thank you.
[2018-08-01] MEDS ORDERED: HYDROcodone/acetaminophen 5mg/325mg tablet PO PRN (16:15)
[2018-08-01] MEDS: ondansetron/PF 4mg/2ml inj IV PRN ×2 (16:23→23:49)
--- NOTE | 2018-08-01 16:40 | NUR ---
Paged Dr. Boone PAGER ID: [phone] MESSAGE: Gloria Tam [phone]. Darlene Sullivan [id number]. altitude chamber technician placed boot. Is patient bearing or non-weight bearing? Also patient is concerned about being discharged today due to pain resulting from fracture. Please advise.
--- NOTE | 2018-08-01 18:26 | NUR ---
Problems reprioritized. Patient report given, questions answered & plan of care reviewed with Gina DUNHAM.
--- NOTE | 2018-08-01 18:37 | NUR ---
Patient in room PCU 3015. I have received report from CHARLA La and had the opportunity to ask questions and assume patient care.
--- NOTE | 2018-08-01 18:37 | NUR ---
[place] documentation: I have reviewed and agree with all interventions, assessments performed and documented by Gloria DUNHAM. [place] Medication Administration: For this medication-pass time frame, all medication were reviewed, dispensed, administered and documented per hospital policy by Gloria DUNAHM.
[2018-08-01] MEDS: HYDROcodone/acetaminophen 10/325mg tab PO PRN (20:28)
[2018-08-01] MEDS: furosemide 20MG tablet PO SCH (20:57)
[2018-08-01] MEDS: atorvastatin 20mg tablet PO SCH (20:59)
[2018-08-02] VITALS (7 sets, daily range): BP systolic 97–128; BP diastolic 57–72
[2018-08-02] MEDS: HYDROcodone/acetaminophen 10/325mg tab PO PRN ×2 (00:32→04:42)
--- NOTE | 2018-08-02 06:22 | NUR ---
Problems reprioritized. Patient report given, questions answered & plan of care reviewed with CHARLA Lynne
--- NOTE | 2018-08-02 06:30 | NUR ---
I have received patient report from Gina DUNHAM
[2018-08-02] MEDS: K and/or MAG REPLACEMENT MC SCH (08:00)
[2018-08-02] MEDS: BUDESONIDE 0.25 MG/2 ML AMPUL.NEB IH SCH ×2 (08:07→20:45)
[2018-08-02] MEDS: furosemide 40mg tablet PO SCH (08:19)
[2018-08-02] MEDS: aspirin 81mg tab.chew PO SCH (08:19)
[2018-08-02] MEDS: allopurinol 100mg tablet PO SCH (08:19)
[2018-08-02] MEDS: clopidogrel 75mg tablet PO SCH (08:19)
[2018-08-02] MEDS: montelukast 10mg tablet PO SCH (08:19)
[2018-08-02] MEDS: gabapentin 300mg capsule PO SCH ×2 (08:19→13:00)
[2018-08-02] MEDS: vitamin D (cholecalciferol) 1,000 unit tablet PO SCH (08:19)
[2018-08-02] MEDS: carVEDilol 3.125mg tablet PO SCH ×2 (08:19→20:41)
[2018-08-02] MEDS: pantoprazole 40mg Tablet.DR PO SCH (08:19)
[2018-08-02] MEDS: enoxaparin 40mg/0.4ml syringe SQ SCH (08:20)
--- NOTE | 2018-08-02 11:09 | NUR ---
Dr Douglas saw patient EKG he said it was okay.
[2018-08-02] MEDS ORDERED: HYDROcodone/acetaminophen 5mg/325mg tablet PO PRN (11:25)
[2018-08-02] MEDS ORDERED: HYDROcodone/acetaminophen 10/325mg tab PO PRN (11:25)
--- NOTE | 2018-08-02 11:25 | NUR ---
Dr Ferguson aware of patient somulence and decreased resparartions and 02 sat, patient desats to 86% since and is very sleepy. Respirations about 10/min. Dr. Ferguson ordered norcos q8h instead of q4h and abg.
[2018-08-02 12:06] LABS: ABG BASE EXCESS 2.9 mmol/L (-2.0-3.0); ABG HCO3 29.3 mmol/L (22.0-26.0); ABG OXYGEN SATURATION 93.7 % (95-98); ABG PCO2 (T) 53.1 mmHg (32.0-45.0); ALLEN'S TEST Positive; FCOHb 1.2 % (0.5-1.5); FLOW 2 L/min; FMetHb 0.2 % (0.3-1.12); FO2Hb 92.4 % (94-100); TOTAL HEMOGLOBIN 12.6 G/dl (12.0-16.0)
--- NOTE | 2018-08-02 16:30 | NUR ---
I told Dr. Ferguson patient urine was very dark, she put patient on fluids and adjusted lasix.
[2018-08-02] MEDS: normal saline 1000ml 1,000 ML IV SCH (17:14)
--- NOTE | 2018-08-02 18:00 | NUR ---
Patient in room PCU 3015. I have received report from CHARLA Lynne and had the opportunity to ask questions and assume patient care.
--- NOTE | 2018-08-02 18:29 | NUR ---
Patient report given to Beth DUNHAM
[2018-08-02] MEDS: atorvastatin 20mg tablet PO SCH (20:40)
[2018-08-02] MEDS: ipratropium/albuterol 3ml nebule NEB PRN (20:45)
[2018-08-02] MEDS ORDERED: gabapentin 300mg capsule PO SCH (21:00)
[2018-08-03 02:00] VITALS: BP 101/62
[2018-08-03] MEDS: normal saline 1000ml 1,000 ML IV SCH (05:30)
[2018-08-03 06:00] VITALS: BP 102/63
--- NOTE | 2018-08-03 06:20 | NUR ---
Patient in room PCU 3015. I have received report from Beth DUNHAM and had the opportunity to ask questions and assume patient care.
--- NOTE | 2018-08-03 06:30 | NUR ---
Problems reprioritized. Patient report given, questions answered & plan of care reviewed with CHARLA Alberto.
[2018-08-03 06:32] LABS: BASOPHILS % (AUTO) 0.3 % (0-1); EOSINOPHILS # (AUTO) 0.2 X10'3 (0-0.9); EOSINOPHILS % (AUTO) 1.7 % (0-6); HEMATOCRIT 33.2 % (35.0-45.0); HEMOGLOBIN 10.3 g/dl (12.0-16.0); LYMPHOCYTES # (AUTO) 0.5 X10'3 (1.1-4.8); MEAN CORPUSCULAR HEMOGLOBIN 27.5 PG (27.0-31.0); MEAN CORPUSCULAR HGB CONC 31.1 g/dL (33.0-36.5); MEAN CORPUSCULAR VOLUME 88.3 FL (78-98); MEAN PLATELET VOLUME 8.4 FL (7.4-10.4); MONOCYTES # (AUTO) 1.2 X10'3 (0-0.9); MONOCYTES % (AUTO) 14.2 % (2-12); NEUTROPHILS # (AUTO) 6.8 X10'3 (1.8-7.7); NEUTROPHILS % (AUTO) 77.8 % (42-75); PLATELET COUNT 188 X10'3 (140-440); RED BLOOD COUNT 3.76 X10'6 (4.20-5.60); RED CELL DISTRIBUTION WIDTH 20.9 % (11.5-14.5); WHITE BLOOD COUNT 8.8 X10'3 (4.5-11.0)
[2018-08-03 06:54] LABS: ALANINE AMINOTRANSFERASE 24 U/L (12-78); ALBUMIN 2.6 G/DL (3.4-5.0); ALBUMIN/GLOBULIN RATIO 0.7 (1.1-1.5); ALKALINE PHOSPHATASE 109 IU/L (46-116); ANION GAP 5 (8-16); ASPARTATE AMINO TRANSFERASE 36 U/L (10-37); BILIRUBIN,TOTAL 1.5 MG/DL (0.1-1.0); BLOOD UREA NITROGEN 31 MG/DL (7-18); BUN/CREATININE RATIO 27.4 (6.6-38.0); CALCIUM 8.9 MG/DL (8.5-10.1); CHLORIDE 98 MMOL/L (99-107); CREATININE 1.13 MG/DL (0.40-0.90); GLUCOSE 114 MG/DL (70-104); POTASSIUM 4.6 MMOL/L (3.5-5.1); SODIUM 132 MMOL/L (135-145); TOTAL CARBON DIOXIDE 28.8 MMOL/L (24-32); TOTAL PROTEIN 6.1 G/DL (6.4-8.2); eGFR 47 ML/MIN
[2018-08-03 07:24] LABS: ANISOCYTOSIS 3+; PLATELET ESTIMATE NORMAL
[2018-08-03 07:25] LABS: ELLIPTOCYTES FEW; HYPOCHROMASIA 2+; SCHISTOCYTES FEW
[2018-08-03 07:26] LABS: POLYCHROMASIA FEW
[2018-08-03 07:27] LABS: STOMATOCYTES FEW
[2018-08-03] MEDS: aspirin 81mg tab.chew PO SCH (07:42)
[2018-08-03] MEDS: pantoprazole 40mg Tablet.DR PO SCH (07:42)
[2018-08-03] MEDS: clopidogrel 75mg tablet PO SCH (07:42)
[2018-08-03] MEDS: allopurinol 100mg tablet PO SCH (07:43)
[2018-08-03] MEDS: montelukast 10mg tablet PO SCH (07:44)
[2018-08-03] MEDS: enoxaparin 40mg/0.4ml syringe SQ SCH (07:46)
[2018-08-03] MEDS: BUDESONIDE 0.25 MG/2 ML AMPUL.NEB IH SCH (07:53)
[2018-08-03] MEDS: ipratropium/albuterol 3ml nebule NEB PRN (07:53)
[2018-08-03] MEDS: carVEDilol 3.125mg tablet PO SCH (08:00)
[2018-08-03] MEDS: K and/or MAG REPLACEMENT MC SCH (08:00)
[2018-08-03] MEDS ORDERED: GABA300C PO (08:59)
--- NOTE | 2018-08-03 13:15 | NUR ---
Pt DCd home with . IV removed, canula intact. [facility] Belongings sent home with pt. No new meds. Pt wheeled down to lobby in wheel chair by auxilliary with .
== END 2018-08-03 13:20 | disposition home or self-care (01) | DRG 310 ==
LOC: ER 13:31 → PCU 3S 18:25 → UNDODISOB 20:10 → CMPBEDREQ 23:08 → OBSVTOIN 08-02 08:29
PROVIDERS: ADMIT Hospitalist; ATTEND Internal Medicine
PROC: 4B02XTZ Measurement of Cardiac Defibrillator, External Approach (ICD-10-PCS; principal; 2018-07-31)
DX: I49.01 Ventricular fibrillation (principal); I42.0 Dilated cardiomyopathy; S82.832A Other fracture of upper and lower end of left fibula, initial encounter for closed fracture; G89.29 Other chronic pain; E78.5 Hyperlipidemia, unspecified; I25.10 Atherosclerotic heart disease of native coronary artery without angina pectoris; W19.XXXA Unspecified fall, initial encounter; J44.9 Chronic obstructive pulmonary disease, unspecified; I10 Essential (primary) hypertension; T75.4XXA Electrocution, initial encounter; W86.8XXA Exposure to other electric current, initial encounter; Z95.810 Presence of automatic (implantable) cardiac defibrillator; Z79.899 Other long term (current) drug therapy; Z79.82 Long term (current) use of aspirin; Y93.89 Activity, other specified; Y92.89 Other specified places as the place of occurrence of the external cause; Y99.8 Other external cause status
CPT/HCPCS: 36415; 36600; 71045; 73610; 80048; 80053; 80162; 82803; 83735; 83880; 84132; 84439; 84443; 84484; 85018; 85025; 87070; 93005; 94640; 94760; 96374; 96375; 97116; 97162; 97530; 99285; G0378; J1650; J1940; J2405; J7030